=== PATIENT | female | born 1990 | race Caucasian/White ===

== ENCOUNTER 2020-01-04 17:01 | Emergency (ER) | payer SELFPAY ==
--- OUTSIDE RECORDS SUMMARY | ~2020-01-04 | XMS | Clinical Summary ---
Demographics + + + | Address | [address] | | | [place] [address] | + + + | Home Phone | | + + + | Preferred Language | Unknown | + + + | Marital Status | Unknown or other | + + + | Baptism Affiliation | Unknown | + + + | Race | White | + + + | Ethnic Group | Not or | + + + Author + + + | Author | [facility] | + + + | Organization | [facility] | + + + | Address | [address] [place] [address] | | | [place] [address] | + + + | Phone | | + + + Care Team Providers + + + + | Care Furniture Removalist'S Assistant Name | Role | Phone | + + + + Unavailable | Unavailable | + + + + Conditions or Problems +---------+---------+---------+--------+---------+---------+---------+---------+---------+ | Problem | Problem | Onset | Status | Entry | Provide | Comment | Standar | Annotat | | Name | Code | Date | | Date | r | | d | e | | | | | | | | | Descrip | | | | | | | | | | tion | | +---------+---------+---------+--------+---------+---------+---------+---------+---------+ | Screeni | [id number] | | Active | | Bridgette | | Depress | | | ng for | | / | | / | Reddy | | ion | | | depress | (SNOMED | | | | | | screeni | | | ion | CT) | | | | | | ng | | +---------+---------+---------+--------+---------+---------+---------+---------+---------+ | Pap | [id number] | | Active | | Bridgette | | Cytopat | | | w/pharmacy laboratory technician | 9 | /17 | | / | Reddy | | hology | | | exam | (SNOMED | | | | | | procedu | | | | CT) | | | | | | re or | | | | | | | | | | service | | +---------+---------+---------+--------+---------+---------+---------+---------+---------+ | Encount | [id number] | | Active | | Bridgette | | Adult | | | er for | | | | / | Reddy | | health | | | general | (SNOMED | | | | | | examina | | | adult | CT) | | | | | | tion | | | medical | | | | | | | | | | | | | | | | | | | | examina | | | | | | | | | | tion | | | | | | | | | | with | | | | | | | | | | abnorma | | | | | | | | | | l | | | | | | | | | | finding | | | | | | | | | | s | | | | | | | | | +---------+---------+---------+--------+---------+---------+---------+---------+---------+ | Foreign | [id number] | | Active | | Gisele | | Tampon | | | body | | | | / | Brule | | retaine | | | in | (SNOMED | | | | PA-C | | d in | | | vulva | CT) | | | | | | vagina | | | and | | | | | | | | | | vagina, | | | | | | | | | | | | | | | | | | | | initial | | | | | | | | | | | | | | | | | | | | encount | | | | | | | | | | er & | | | | | | | | | | Other | | | | | | | | | | specifi | | | | | | | | | | ed | | | | | | | | | | retaine | | | | | | | | | | d | | | | | | | | | | foreign | | | | | | | | | | body | | | | | | | | | | fragmen | | | | | | | | | | ts | | | | | | | | | +---------+---------+---------+--------+---------+---------+---------+---------+---------+ | Constip | [id number] | | Active | | Gisele | | Constip | | | ation | 8 | / | | /17 | Brule | | ation | | | | (SNOMED | | | | PA-C | | | | | | CT) | | | | | | | | +---------+---------+---------+--------+---------+---------+---------+---------+---------+ | Abdomin | [id number] | | Active | | Gisele | | Lower | | | al | 4 | /17 | | /17 | Brule | | abdomin | | | pain, | (SNOMED | | | | PA-C | | al pain | | | lower | CT) | | | | | | | | +---------+---------+---------+--------+---------+---------+---------+---------+---------+ | Methamp | [id number] | | Active | | Gisele | | Methamp | | | hetamin | | / | | | Brule | | hetamin | | | e abuse | (SNOMED | | | | PA-C | | e abuse | | | | CT) | | | | | | | | +---------+---------+---------+--------+---------+---------+---------+---------+---------+ | Screeni | [id number] | | Active | | Gisele | | Thyroid | | | ng for | | | | | Brule | | | | | thyroid | (SNOMED | | | | PA-C | | disorde | | | | CT) | | | | | | r | | | disorde | | | | | | | screeni | | | r | | | | | | | ng | | +---------+---------+---------+--------+---------+---------+---------+---------+---------+ | Adjustm | [id number] | | Active | | Radha | | Adjustm | RECURRE | | ent | 9 | / | | | Liset | | ent | NT | | disorde | (SNOMED | | | | s | | disorde | BRIEF | | r with | CT) | | | | | | r with | DEPRESS | | depress | | | | | | | depress | HADLEY | | ed mood | | | | | | | ed mood | DISORDE | | | | | | | | | | R | +---------+---------+---------+--------+---------+---------+---------+---------+---------+ | Anxiety | [id number] | | Active | | Radha | | Anxiety | | | | | / | | | Jenning | | | | | disorde | (SNOMED | | | | s | | disorde | | | r | CT) | | | | | | r | | +---------+---------+---------+--------+---------+---------+---------+---------+---------+ Medications + + + + + +-----+ + | Medication | Instructio | Start Date | Stop Date | Generic | NDC | Provider | | | ns | | | Name | | | + + + + + +-----+ + + + | Observed no known medications at | + + Medications Administered No information available. Allergies, Adverse Reactions, Alerts + + + + +--------+ + | Allergy Name | Reaction | Start Date | Severity | Status | Provider | | | Description | | | | | + + + + +--------+ + | SULFA DRUG | | | Critical | Active | Radha | | | | | | | Yeung | + + + + +--------+ + Results +------+------+-------+------+-------+------+ + | Date | Name | Value | Unit | Range | Flag | Descriptio | | | | | | | | n | +------+------+-------+------+-------+------+ + + + | Office Visit: NEW PATIENT ESTABLISH CARE | + + + + + +---+---+---+ + | | PHQ-9 | 19 | | | | Adult | | | SCORE | | | | | depression | | | | | | | | screening | | | | | | | | | | | | | | | | assessment | + + + +---+---+---+ + | | NKMED | T | | | | Documentat | | | | | | | | ion of | | | | | | | | current | | | | | | | | medication | | | | | | | | s | | | | | | | | (procedure | | | | | | | | ) | + + + +---+---+---+ + | | MEDS | Done | | | | Documentat | | | REVIEW | | | | | ion of | | | | | | | | current | | | | | | | | medication | | | | | | | | s | | | | | | | | (procedure | | | | | | | | ) | + + + +---+---+---+ + | | ORALTOBACU | Never | | | | Tobacco | | | SE | | | | | smoking | | | | | | | | status | | | | | | | | NHIS | + + + +---+---+---+ + | | SMOK | Current | | | | Tobacco | | | STATUS | every day | | | | smoking | | | | smoker | | | | status | | | | | | | | NHIS | + + + +---+---+---+ + Plan of Care + + + + | Type | Date | Detail | + + + + | Referral | | Psychology | + + + + | Pending order | | XR Abdomen 1 View | + + + + | Pending order | | CBC- Auto Diff | + + + + | Pending order | | CMP | + + + + | Pending order | | TSH | + + + + Procedures + + + + + | Code | Procedure Name | Date | Entry Date | + + + + + | CPT-3725F | [facility] Depression | | | | | Screening ([facility]) | | | + + + + + Vital Signs + + +-------+---------+ + | Date | Name | Value | Unit | Description | + + +-------+---------+ + | | BMI (Body Mass | 20.14 | kg/m2 | Body Mass Index | | | Index) | | | [Ratio] | + + +-------+---------+ + | | Body | 97.9 | [degF] | temperature E&M | | | Temperature | | | | + + +-------+---------+ + | | BP Diastolic | 68 | mm[Hg] | blood pressure, | | | | | | diastolic | + + +-------+---------+ + | | BP Systolic | 108 | mm[Hg] | blood pressure, | | | | | | systolic | + + +-------+---------+ + | | Heart Rate | 76 | /min | pulse rate E&M | + + +-------+---------+ + | | Height | 65.25 | [in_us] | height E&M | + + +-------+---------+ + | | Respiratory | 16 | /min | respiratory | | | Rate | | | rate E&M | + + +-------+---------+ + | | Weight Measured | 122 | [lb_av] | weight E&M | + + +-------+---------+ + Immunizations + + + + +---------+ | Vaccine | Administration | Standard | CVX Code | Dose | | | Date | Description | | | + + + + +---------+ | Unspecified | | Unspecified | 139 | Unknown | | Formulation | | Formulation | | | + + + + +---------+ | Unspecified | | Unspecified | 89 | Unknown | | Formulation | | Formulation | | | + + + + +---------+ | Unspecified | | Unspecified | 89 | Unknown | | Formulation | | Formulation | | | + + + + +---------+ | Unspecified | | Unspecified | 89 | Unknown | | Formulation | | Formulation | | | + + + + +---------+ | Unspecified | | Unspecified | 89 | Unknown | | Formulation | | Formulation | | | + + + + +---------+ | Unspecified | | Unspecified | 03 | Unknown | | Formulation | | Formulation | | | + + + + +---------+ | Unspecified | | Unspecified | 03 | Unknown | | Formulation | | Formulation | | | + + + + +---------+ | Unspecified | | Unspecified | 17 | Unknown | | Formulation | | Formulation | | | + + + + +---------+ | Engerix-B | | Engerix-B | 08 | Unknown | | Injection | | Injection | | | | Suspension 10 | | Suspension 10 | | | | MCG/0.5ML | | MCG/0.5ML | | | + + + + +---------+ | Engerix-B | | Engerix-B | 08 | Unknown | | Injection | | Injection | | | | Suspension 10 | | Suspension 10 | | | | MCG/0.5ML | | MCG/0.5ML | | | + + + + +---------+ | Engerix-B | | Engerix-B | 08 | Unknown | | Injection | | Injection | | | | Suspension 10 | | Suspension 10 | | | | MCG/0.5ML | | MCG/0.5ML | | | + + + + +---------+ | Unspecified | | Unspecified | 107 | Unknown | | Formulation | | Formulation | | | + + + + +---------+ | Unspecified | | Unspecified | 107 | Unknown | | Formulation | | Formulation | | | + + + + +---------+ | Unspecified | | Unspecified | 107 | Unknown | | Formulation | | Formulation | | | + + + + +---------+ | Unspecified | | Unspecified | 107 | Unknown | | Formulation | | Formulation | | | + + + + +---------+ | Unspecified | | Unspecified | 107 | Unknown | | Formulation | | Formulation | | | + + + + +---------+ Advance Directives No information available. Chief Complaint + + + | Chief Complaint Description | Start Date | + + + | new patient | | + + + Family History + +--------+ + | Relation | Gender | Diagnosis | + +--------+ + | First degree blood relative | | FH unknown | + +--------+ + GE General Observations Section narrative not generated History of Past Illness 2 PREGNANCIES, 2 LIVE BIRTHSTUBAL LIGATION 2009ADD, ANXIETY, DEPRESSION History of Present Illness + + + | History of Present Illness Description | Start Date | + + + | Patient is here today as a new patient to | | | establish | | | care...................................... | | | ..............................Yamilet | | | [facility] January 25, 2018 8:10 AM | | | DANNY FAIR is a 27 year old female | | | who presents to the clinic today with | | | chief complaint of 1) establishing care. | | | Was seen 3 years ago for depression. 2) | | | PAP. Is having some bleeding after | | | discharge, some malodorous discharge. 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 Has decided | | | that she needs to change her live and be | | | helathy. No use in the past several days. | | | Wanted to be clean for this appointment. | | | Is trying to eat healthy and to maintain | | | hydration. Partner is supportive and | | | going through the same process. 4) staying | | | on motel and has some bed bug bites, | | | mattress has been replaced. No current | | | fever or chills. No nausea, vomiting, | | | diarrhea. No chest pain. She does have | | | constipation and abdominal pain stating | | | that sometimes she does not have BM for a | | | month. elevated scores of depression and | | | anxiety. she is a smoker and we discussed | | | this as well, will concentrate on staying | | | off the meth at this time and then work | | | on the tobacco. | | + + + Review of Systems No information available.
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
--- OUTSIDE RECORDS SUMMARY | ~2020-01-04 | XMS | Clinical Summary ---
Demographics + + + | Address | [address] | | | [place] [address] | + + + | Home Phone | | + + + | Preferred Language | Unknown | + + + | Marital Status | Unknown or other | + + + | Mu-Ism Affiliation | Unknown | + + + | Race | White | + + + | Ethnic Group | Not or | + + + Author + + + | Author | [facility] | + + + | Organization | [facility] | + + + | Address | [address] [place] [address] | | | [place] [address] | + + + | Phone | | + + + Care Team Providers + + + + | Care Mobile Home Laborer Name | Role | Phone | + [...] tion | | +---------+---------+---------+--------+---------+---------+---------+---------+---------+ | Screeni | [id number] | | Active | | Bridegtte | | Depress | | | ng for | | / | | / | Reddy | | ion | | | depress | (SNOMED | | | | | | screeni | | | ion | CT) | | | | | | ng | | +---------+---------+---------+--------+---------+---------+---------+---------+---------+ | Pap | [id number] | | Active | | Bridgette | | Cytopat | | | w/nursery worker | 9 | /17 | | / | Reddy | | hology | | | exam | (SNOMED | | | | | | procedu | | | | CT) | | | | | | re or | | | | | | | | | | service | | +---------+---------+---------+--------+---------+---------+---------+---------+---------+ | Encount | [id number] | | Active | | Bridgette | [...] | | | +---------+---------+---------+--------+---------+---------+---------+---------+---------+ | Foreign | [id number] | | Active | | Gisele | | Tampon | | | body | | | | / | Early | | retaine | | | in [...] | | | +---------+---------+---------+--------+---------+---------+---------+---------+---------+ | Constip | [id number] | | Active | | Gisele | | Constip | | | ation | 8 | / | | /17 | Early | | ation | | | | (SNOMED | | | | PA-C | | | | | | CT) | | | | | | | | +---------+---------+---------+--------+---------+---------+---------+---------+---------+ | Abdomin | [id number] | | Active | | Gisele | | Lower | | | al | 4 | /17 | | /17 | Early | | abdomin | | | pain, | (SNOMED | | | | PA-C | | al pain | | | lower | CT) | | | | | | | | +---------+---------+---------+--------+---------+---------+---------+---------+---------+ | Methamp | [id number] | | Active | | Gisele | | Methamp | | | hetamin | | / | | | Early | | hetamin | | | e abuse | (SNOMED | | | | PA-C | | e abuse | | | | CT) | | | | | | | | +---------+---------+---------+--------+---------+---------+---------+---------+---------+ | Screeni | [id number] | | Active | | Gisele | | Thyroid | | | ng for | | | | | Early | | | | | thyroid | (SNOMED | | | | PA-C | | disorde | | | | CT) | | | | | | r | | | disorde | | | | | | | screeni | | | r | | | | | | | ng | | +---------+---------+---------+--------+---------+---------+---------+---------+---------+ | Adjustm | [id number] | | Active | | Radha | [...] | R | +---------+---------+---------+--------+---------+---------+---------+---------+---------+ | Anxiety | [id number] | | Active | | Radha | | Anxiety | | | | | | | | [place] | | | [...] | | | ..............................Yamilet | | | [facility]ins CMA January 25, 2018 8:10 AM | | [...]
--- OUTSIDE RECORDS SUMMARY | ~2020-01-04 | XMS | Clinical Summary ---
Demographics + + + | Address | [address] | | | [place] [address] | + + + | Home Phone | | + + + | Preferred Language | Unknown | + + + | Marital Status | Unknown or other | + + + | Bahai Affiliation | Unknown | + + + | Race | White | + + + | Ethnic Group | Not or | + + + Author + + + | Author | [facility] | + + + | Organization | [facility] | + + + | Address | [facility] [facility] | | | [place] [address] | + + + | Phone | | + + + Care Team Providers + + + + | Care Boiler Fireman Name | Role | Phone | + [...] | | tion | | +---------+---------+---------+--------+---------+---------+---------+---------+---------+ | Foreign | [id number] | | Active | | Gisele | | Tampon | | | body | 08 | /17 | | /18 | [place] | | retaine | | | in [...] | | | +---------+---------+---------+--------+---------+---------+---------+---------+---------+ | Constip | [id number] | | Active | | Gisele | | Constip | | | ation | 8 | | | | [place] | | ation | | | | (SNOMED | | | | PA-C | | | | | | CT) | | | | | | | | +---------+---------+---------+--------+---------+---------+---------+---------+---------+ | Abdomin | [id number] | | Active | | Gisele | | Lower | | | al | 4 | | | | [place] | | abdomin | | | pain, | (SNOMED | | | | PA-C | | al pain | | | lower | CT) | | | | | | | | +---------+---------+---------+--------+---------+---------+---------+---------+---------+ | Methamp | [id number] | | Active | | Gisele | | Methamp | | | hetamin | 03 | | | | [place] | | hetamin | | | e abuse | (SNOMED | | | | PA-C | | e abuse | | | | CT) | | | | | | | | +---------+---------+---------+--------+---------+---------+---------+---------+---------+ | Screeni | [id number] | | Active | | Gisele | | Thyroid | | | ng for | | | | | [place] | | | | | thyroid | (SNOMED | | | | PA-C | | disorde | | | | CT) | | | | | | r | | | disorde | | | | | | | screeni | | | r | | | | | | | ng | | +---------+---------+---------+--------+---------+---------+---------+---------+---------+ | Adjustm | [id number] | | Active | | Radha | | Adjustm | RECURRE | | ent | | | | | Liset | [...] | R | +---------+---------+---------+--------+---------+---------+---------+---------+---------+ | Anxiety | [id number] | | Active | | Radha | | Anxiety | | | | | | | /27 | Liset | | | | | [...] + Procedures No information available. Vital Signs + + +-------+---------+ + | [...] | | | ..............................Yamilet | | | Felicity [facility] January 25, 2018 8:10 AM | | [...]
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
== END 2020-01-04 18:10 | disposition home or self-care (01) ==
LOC: ED 17:01
DX: S40.812A Abrasion of left upper arm, initial encounter (principal); V49.9XXA Car occupant (driver) (passenger) injured in unspecified traffic accident, initial encounter
CPT/HCPCS: 99283